=== PATIENT | male | born 1980 | race Caucasian/White ===

== ENCOUNTER 2017-02-07 15:41 | Emergency (ER) | payer SELFPAY ==
[~2017-02-07] VITALS: Ht 175.3 cm; Wt 77.2 kg
[~2017-02-07 15:41] MED LIST: ALPRAZOLAM0.5 MG PO; ALPRAZOLAM1 MG; BUPRENORPHINE HC2 MG SL; METHADONE10 MG PO; PREDNISONE20 MG PO; ZITHROMAX250 MG PO
[2017-02-07] MEDS ORDERED: EFFEXOR75 MG PO (19:03)
[2017-02-07] MEDS ORDERED: XANAX0.5 MG PO (19:03)
[2017-02-07 19:14] VITALS: BP 146/88
== END 2017-02-07 19:14 | disposition home or self-care (01) ==
LOC: EME 15:41
DX: Z76.0 Encounter for issue of repeat prescription (principal); F41.9 Anxiety disorder, unspecified; F17.200 Nicotine dependence, unspecified, uncomplicated
CPT/HCPCS: 99281; 99283